=== PATIENT | female | born 1970 | race Caucasian/White ===

== ENCOUNTER 2023-07-27 10:25 | Outpatient (OUT) | payer OTHER, MEDICARE, MEDICAID, SELFPAY | END 2023-07-27 10:26 | disposition home or self-care (01) | PROVIDERS: PCP Nurse Practitioner Family; Visit Provider Nurse Practitioner Family | DX: G47.33 Obstructive sleep apnea (adult) (pediatric) (principal); R51.9 Headache, unspecified; R53.82 Chronic fatigue, unspecified | CPT/HCPCS: 95806 ==